=== PATIENT | female | born 1995 ===

== ENCOUNTER 2017-11-23 20:45 | Emergency (ER) | payer OTHER ==
[2017-11-23 23:38] LABS: INR 0.94 (0.77-1.02)
[2017-11-23 23:41] LABS: ABS Basophils 0 10^3/ul (0-0.2); ABS Eosinophils 0.1 10^3/ul (0-0.6); ABS Lymphocytes 1.7 10^3/ul (1.0-4.8); ABS Monocytes 0.5 10^3/ul (0-0.8); ABS Nucleated RBC 0 10^3/ul; Eosinophil % 1.4 % (0-6); Hematocrit 30 % (35-47); Hemoglobin 10.7 g/dl (12.0-16.0); Lymphocyte % 20.4 % (25-47); Mean Corpuscular HGB Conc 35 g/dl (31-36); Mean Corpuscular Hemoglobin 32 pg (27-31); Mean Corpuscular Volume 91 fL (80-97); Mean Platelet Volume 10 um3 (7.4-10.4); Nucleated Red Blood Cells % 0; Platelet Count 206 10^3/ul (150-450); Red Blood Count 3.33 10^6/ul (4.0-5.4); Red Cell Distribution Width 13 % (10.5-15); White Blood Count 8.4 10^3/ul (3.5-10.8)
[2017-11-23 23:42] LABS: EGFR Non-African American 172.7 (>60)
--- NOTE | 2017-11-23 23:45 | ED ---
GI/ HPI - HPI Summary HPI Summary: 17 week pt here w/ vaginal bleeding earlier today and again while here. Reports she had a light bloating like pain in her LLQ with initial bleeding. Denies cramping, mary jo, back pain, fever, chills, nausea, vomiting, diarrhea. She take a prenantal vitamin and is overall healthy other than constipation which she had before as well. Takes fiber supplement to help. Reports some mild URI sx earlier this week but better now. Also admits to walking a great deal yesterday as she's visiting from [place] for a few days. - History of Current Complaint Chief Complaint: EDGeneral Time Seen by Provider: 11/23/17 23:06 Stated Complaint: 17 WEEKS PREG/BLEEDING Hx Obtained From: Patient, Family/Lopper - male partner Pain Intensity: 0 PMH/Surg Hx/FS Hx/Imm Hx Previously Healthy: Yes Endocrine/Hematology History: Denies: Hx Anticoagulant Therapy, Hx Blood Disorders, Hx Unexplained Bleeding , Hx Coagulopothy GI History: Reports: Other GI Disorders - constipation Infectious Disease History: No Infectious Disease History: Reports: Traveled Outside the [place] in Last 30 Days - here in [facility] visiting from [place] - Family History Known Family History: Positive: None - Social History Lives: With Family Alcohol Use: None Hx Substance Use: No Substance Use Type: Reports: None Hx Tobacco Use: No Smoking Status (MU): Never Smoked Tobacco Review of Systems Constitutional: Negative Negative: Fever, Chills, Fatigue Cardiovascular: Negative Negative: Palpitations, Chest Pain Respiratory: Negative Negative: Shortness Of Breath, Cough Negative: Vomiting, Diarrhea, Nausea Positive: see HPI, frequency - has had this since started. Negative: burning, dysuria, flank pain, incontinence, urgency Musculoskeletal: Negative Skin: Negative Neurological: Negative Psychological: Normal All Other Systems Reviewed And Are Negative: Yes Physical Exam Triage Information Reviewed: Yes Vital Signs On Initial Exam: Initial Vitals Temp Pulse Resp BP Pulse Ox 98.8 F 86 18 119/73 100 11/23/17 21:08 11/23/17 21:08 11/23/17 21:08 11/23/17 21:08 11/23/17 21:08 Vital Signs Reviewed: Yes Appearance: Positive: Well-Appearing, No Pain Distress, Well-Nourished Skin: Positive: Warm, Skin Color Reflects Adequate Perfusion, Dry - no erythema , no ecchymosis Head/Face: Positive: Normal Head/Face Inspection Eyes: Positive: Normal, EOMI, Conjunctiva Clear - anicertic sclera ENT: Positive: Normal ENT inspection, Hearing grossly normal, Pharynx normal - mucosa moist Neck: Positive: Supple - no gross thyromegaly Respiratory/Lung Sounds: Positive: Clear to Auscultation, Breath Sounds Present Cardiovascular: Positive: Normal, RRR, S1, S2 Abdomen Description: Positive: Nontender, Soft Bowel Sounds: Positive: Present Pelvic Exam: Positive: other - deferred Musculoskeletal: Positive: Normal, Strength/ROM Intact Neurological: Positive: Normal, Sensory/Motor Intact, Alert, Oriented to Person Place, Time, CN Intact II-III Psychiatric: Positive: Normal Diagnostics - Vital Signs Vital Signs Temp Pulse Resp BP Pulse Ox 11/23/17 21:08 98.8 F 86 18 119/73 100 - Laboratory Lab Results: Lab Results 11/23/17 11/23/17 11/23/17 Range/Units 23:10 23:10 23:10 INR (Anticoag Therapy) 0.94 (0.77-1.02) APTT 26.7 (26.0-36.3) seconds Lactic Acid 1.2 (0.5-2.0) mmol/L Blood Type A Positive Result Diagrams: 11/23/17 23:10 11/23/17 23:10 Diagnostic Studies Comment: TVUS: report indicates 18 weeks 2 days , FHR 146, closed cervix 2.3 cm long, vertex present, posterior placenta WITHOUT previa, movement seen Lab Statement: Any lab studies that have been ordered have been reviewed, and results considered in the medical decision making process. GIGU Course/Dx - Course Course Of Treatment: Note: pt's potassium 3.1. Provided with orange juice and advised to f/u for recheck. Labs values, TVUS report and education provided about care. F/u w/ OBGYN as soon as return to [place] - if danger s/sx present in the meantime, return to ED. Pt and partner agree w/ plan. NOTE: pt' s blood type A+ does not need rhogam - Diagnoses Provider Diagnoses: Vaginal bleeding in patient at less than 20 weeks gestation Discharge - Discharge Plan Condition: Stable Disposition: HOME Patient Education Materials: Threatened Miscarriage (ED) Referrals: No Primary Care Phys,NOPCP [Primary Care Provider] - Additional Instructions: Rest, stay hydrated and well nourished. Follow-up with OBGYN upon return home. *If you develop heavier/prolonged bleeding, cramping, contractions, back pain, vomiting, fever, chills, return to ED
[2017-11-24 01:50] VITALS: BP 115/68
--- NOTE | 2017-11-24 07:33 | RAD ---
INDICATION: 17 weeks with vaginal bleeding. COMPARISON: There are no prior studies available for comparison. TECHNIQUE: Multiple real-time transabdominal images of the pelvis were obtained. FINDINGS: This exam demonstrates a single intrauterine in the cephalic presentation. cardiac activity and limb motion are noted. The heart rate was 146 beats per minute. The placenta was located posterior along the body and fundus of the uterus. There is no placenta previa. The amniotic fluid volume appeared to be within normal limits. The cervix measured 2.7 cm in length. Biparietal diameter (cm): 4.2 18 weeks 6 days Head circumference (cm): 15.6 18 weeks 4 days Abdominal circumference (cm): 12.1 17 weeks 6 days Femur length (cm): 2.6 17 weeks 6 days The composite estimated gestational age was 18 weeks 2 days. The estimated date of delivery is April 24, 2018. The estimated weight at this time is 214 grams plus or minus 31 grams. The anatomy was not examined on this limited emergent study. IMPRESSION: THERE IS A SINGLE INTRAUTERINE IN THE CEPHALIC PRESENTATION WITH A COMPOSITE ESTIMATED GESTATIONAL AGE OF 18 WEEKS 2 DAYS.
== END 2017-11-24 01:48 | disposition home or self-care (01) ==
LOC: ED 20:45
DX: O46.92 Antepartum hemorrhage, unspecified, second trimester (principal); Z3A.17 17 weeks gestation of pregnancy; R10.32 Left lower quadrant pain
CPT/HCPCS: 36415; 76815; 80053; 83605; 84702; 85025; 85610; 85730; 86140; 86900; 86901; 99282